=== PATIENT | female | born 1980 | race Hispanic/Latino ===

== ENCOUNTER 2017-11-30 13:23 | Inpatient (IN) | payer SELFPAY ==
[~2017-11-30] VITALS: Ht 167.6 cm; Wt 90.3 kg
[2017-11-30 14:08] LABS: PREGNANCY TEST, URINE NEGATIVE (NEGATIVE)
[2017-11-30 14:17] LABS: BILIRUBIN,URINE NEGATIVE (NEGATIVE); CLARITY,URINE SL CLOUDY (CLEAR); COLOR,URINE YELLOW (YELLOW); KETONES,URINE NEGATIVE (NEGATIVE); LEUKOCYTE ESTERASE ,URINE NEGATIVE (NEGATIVE); NITRITE,URINE NEGATIVE (NEGATIVE); PROTEIN,URINE DIPSTICK 1+ (NEGATIVE); URINE UROBILINOGEN 0.2 mg/dL (0.2 - 1)
[2017-11-30 14:37] LABS: EPITHELIAL CELLS,URINE MODERATE /LPF; MUCUS,URINE FEW (RARE); RBC,URINE 0-5 /HPF (0-5); WBC,URINE (MAN) 0-5 /HPF (0-5)
[2017-11-30 15:00] LABS: BASOPHILS % 0.2 % (0.0-1.0); HEMATOCRIT 31.2 % (34.2-44.1); HEMOGLOBIN 9.1 g/dL (12.0-16.0); LYMPHOCYTES # (AUTO) 0.8 (1.0-3.2); LYMPHOCYTES % 6.6 % (18.0-39.1); MEAN CORPUSCULAR HEMOGLOBIN 19.1 pg (28-32); MEAN CORPUSCULAR HGB CONC 29.2 g/dL (31-35); MEAN CORPUSCULAR VOLUME 65.5 fL (81-99); MONOCYTES # (AUTO) 0.4 (0.2-0.8); MONOCYTES % 3.4 % (4.4-11.3); NEUTROPHILS # (AUTO) 10.2 (2.1-6.9); NEUTROPHILS % 89.5 % (38.7-80.0); PLATELET COUNT 377 x10e3/uL (140-360); RED BLOOD COUNT 4.76 x10e6/uL (3.6-5.1); RED CELL DISTRIBUTION WIDTH 17.9 % (11.7-14.4)
[2017-11-30 15:20] LABS: ALANINE AMINOTRANSFERASE 9 IU/L (0-55); ALBUMIN 3.9 g/dL (3.5-5.0); ALKALINE PHOSPHATASE 68 IU/L (40-150); ANION GAP 10.6 mmol/L (8-16); BLOOD UREA NITROGEN 11 mg/dL (7-26); BUN/CREATININE RATIO 13 (6-25); CALCIUM 8.9 mg/dL (8.4-10.2); CARBON DIOXIDE 24 mmol/L (22-29); CHLORIDE 105 mmol/L (98-107); CREATININE, SERUM 0.86 mg/dL (0.57-1.11); EST GLOMERULAR FILTRATION RATE > 60 ML/MIN (60-); GLUCOSE 127 mg/dL (74-118); POTASSIUM 3.6 mmol/L (3.5-5.1); SODIUM 136 mmol/L (136-145)
[2017-11-30] MEDS ORDERED: ONDANSETRON HCL INJ 2 MG/ML VIAL IV STA (16:12)
[2017-11-30] MEDS ORDERED: SODIUM CHLORIDE 0.9% 1000ML 1,000 ML IV STA (16:12)
[2017-11-30] MEDS ORDERED: PANTOPRAZOLE 40 MG 10ML VIAL IV STA (16:12)
[2017-11-30] MEDS ORDERED: MORPHINE SULFATE 2 MG/ML SYR IV ONE (16:15)
[2017-11-30 16:28] LABS: INR 1.2; PROTHROMBIN TIME 14.3 seconds (11.9-14.5)
[2017-11-30 16:29] LABS: PARTIAL THROMBOPLASTIN TIME 28.6 seconds (23.8-35.5)
[2017-11-30 16:35] LABS: CHOL/HDL RATIO 3.6 (3.0-3.6)
--- NOTE | 2017-11-30 19:20 | Diagnostic Imaging Report ---
EXAM: CT Abdomen and Pelvis WITH contrast INDICATION: Pain COMPARISON: None. TECHNIQUE: Abdomen and Pelvis was scanned utilizing a multidetector helical scanner after administration of IV contrast. Coronal and sagittal reformations were obtained. IV CONTRAST: 100 mL Isovue-370 COMPLICATIONS: None RADIATION DOSE: Total DLP:542 mGy*cm Estimated effective dose: (DLP x 0.015 x size factor) mSv CTDIvol has been reviewed. It is below the limits set by the Radiation Protocol Committee (RPC). FINDINGS: Abdomen: Lung Bases: Groundglass opacities in the lung bases statistically represent atelectasis. Solid Organs: Several hypodensities in the liver including 46 mm image 17, 17 mm image 17, 14 mm image 23, and 16 mm image 29. Adrenals, kidneys, spleen, and pancreas unremarkable. Upper GI Tract: Decompressed stomach limits evaluation. No small bowel obstructive changes. Vascularity: No aortic aneurysm. Lymph Nodes: No suspicious adenopathy. Other: Small amount of free fluid about the liver. Mesenteric inflammatory changes. Pelvis: Bladder: Unremarkable. Other: Uterus grossly unremarkable. There is a 97 x 70 x 102 mm lesion posterior to the uterus on the left with indeterminate Hounsfield units of 43. 49 x 36 mm cystic lesion posterior right pelvis present with more simple fluid Hounsfield units of 17. Colon: Distal colonic decompression limits evaluation. Moderate inflammatory changes are present in the right lower quadrant. There is hyperemia of the wall of the appendix with maximal appendiceal diameter 14 mm. Bone: No acute findings. IMPRESSION: 1. Moderate inflammatory changes in the right lower quadrant with dilated appendix with hyperemic wall consistent with moderate appendicitis. 2. Large 97 x 70 x 102 mm lesion posterior to the uterus on the left with indeterminate Hounsfield units. Findings are nonspecific. Exophytic fibroid, hematoma, large complex/hemorrhagic cyst, cystic ovarian malignancy, or complex duplication cyst could have this appearance. While lesion does not distinctly have the appearance of an abscess, this is not excluded. Adnexal lesion on the right presumably ovarian/physiologic. Pelvic ultrasound could be obtained for further evaluation. 3. Several hepatic lesions incompletely evaluated. Largest lesion may have peripheral nodular enhancement suggesting hemangioma. Nonemergent outpatient liver mass MRI recommended. Signed by: Dr. Willian Norris MD on 11/30/2017 7:16 PM
[2017-11-30] MEDS ORDERED: PIPER-TAZ 3.375 GM 50 ML IV STA (20:56)
--- OUTSIDE RECORDS SUMMARY | 2017-11-30 21:42 | XMS REPORT ---
Author Author [facility] Address Unknown Phone Unavailable Care Team Providers Care Palliative Care Physician Name Role Phone GUME BAR Unavailable Unavailable Problems This patient has no known problems. Allergies, Adverse Reactions, Alerts This patient has no known allergies or adverse reactions. Medications This patient has no known medications. Results Test Description Test Time Test Comments Text Results Atomic Results Result Comments CT ABDOMEN/PELVIS W 2017-11-30 19:02:00 [place] [address] Patient Name: CATRACHITO MCDERMOTT MR #: [id number] : 1980 Age/Sex: 37/F Req #: [id number] [facility] Physician: Ordered by: GUME BAR MD Report #: [id number] Location: ER Room/Bed: Procedure: [id number] CT/CT ABDOMEN/PELVIS W Exam Date: 11/30/17 Exam Time: 1850 REPORT STATUS: Signed EXAM: CT Abdomen and Pelvis WITH contrast INDICATION: Pain COMPARISON: None. TECHNIQUE: Abdomen and Pelvis was scanned utilizing a multidetector helical scanner after administration of IV contrast. Coronal and sagittal reformations were obtained. IV CONTRAST: 100 mL Isovue-370 COMPLICATIONS: None RADIATION DOSE: Total DLP:542 mGy*cm Estimated effective dose: (DLP x 0.015 x size factor) mSv CTDIvol has been reviewed. It is below the limits set by the Radiation Protocol Committee (RPC). FINDINGS: Abdomen: Lung Bases: Groundglass opacities in the lung bases statistically represent atelectasis. Solid Organs: Several hypodensities in the liver including 46 mm image 17, 17 mm image 17, 14 mm image 23, and 16 mm image 29. Adrenals, kidneys, spleen, and pancreas unremarkable. Upper GI Tract: Decompressed stomach limits evaluation. No small bowel obstructive changes. Vascularity: No aortic aneurysm. Lymph Nodes: No suspicious adenopathy. Other: Small amount of free fluid about the liver. Mesenteric inflammatory changes. Pelvis : Bladder: Unremarkable. Other: Uterus grossly unremarkable. There is a 97 x 70 x 102 mm lesion posterior to the uterus on the left with indeterminate Hounsfield units of 43. 49 x 36 mm cystic lesion posterior right pelvis present with more simple fluid Hounsfield units of 17. Colon : Distal colonic decompression limits evaluation. Moderate inflammatory changes are present in the right lower quadrant. There is hyperemia of the wall of the appendix with maximal appendiceal diameter 14 mm. Bone: No acute findings. IMPRESSION: 1. Moderate inflammatory changes in the right lower quadrant with dilated appendix with hyperemic wall consistent with moderate appendicitis. 2. Large 97 x 70 x 102 mm lesion posterior to the uterus on the left with indeterminate Hounsfield units. Findings are nonspecific. Exophytic fibroid, hematoma, large complex/hemorrhagic cyst, cystic ovarian malignancy, or complex duplication cyst could have this appearance. While lesion does not distinctly have the appearance of an abscess , this is not excluded. Adnexal lesion on the right presumably ovarian/ physiologic. Pelvic ultrasound could be obtained for further evaluation. 3. Several hepatic lesions incompletely evaluated. Largest lesion may have peripheral nodular enhancement suggesting hemangioma. Nonemergent outpatient liver mass MRI recommended. Signed by: Dr. Willian Nicole MD on 11/30/2017 7: 16 PM Dictated By: WILLIAN NICOLE MD 15 Transcribed By: LEILANI on 11/30/171915 COPY TO: GUME BAR MD
[2017-11-30] MEDS ORDERED: PIPER-TAZ 3.375 GM / NS 50ML IV SCH (22:00)
[2017-11-30] MEDS ORDERED: PIPER-TAZ 3.375 GM 50 ML IV SCH (22:00)
[2017-11-30] MEDS ORDERED: SODIUM CHLORIDE 0.9% 50ML 50 ML ONE (22:16)
[2017-11-30] MEDS ORDERED: IOPAMIDOL 370 MG/ML 200 ML INFUS..BTL INJ ONE (22:16)
[2017-11-30 23:00] VITALS: BP 121/55
[2017-11-30 23:07] VITALS: BP 121/55
[2017-11-30] MEDS: ONDANSETRON HCL INJ 2 MG/ML VIAL IV PRN ×2 (23:07→23:11)
[2017-11-30] MEDS: SODIUM CHLORIDE 0.9% 1000ML 1,000 ML IV SCH (23:10)
[2017-11-30] MEDS: MORPHINE SULFATE 2 MG/ML SYR IV PRN (23:11)
[2017-11-30] MEDS: ACETAMINOPHEN 1000 MG/100 ML IV PRN (23:30)
[2017-12-01] VITALS (11 sets, daily range): BP systolic 109–124; BP diastolic 53–59
[2017-12-01] MEDS: MORPHINE SULFATE 2 MG/ML SYR IV PRN ×2 (03:55→10:20)
[2017-12-01] MEDS: ONDANSETRON HCL INJ 2 MG/ML VIAL IV PRN ×3 (03:55→10:20)
[2017-12-01] MEDS: ACETAMINOPHEN 1000 MG/100 ML IV PRN ×2 (05:54→12:09)
[2017-12-01] MEDS: PIPER-TAZ 3.375 GM 50 ML IV SCH ×3 (06:16→21:19)
[2017-12-01] MEDS: SODIUM CHLORIDE 0.9% 1000ML 1,000 ML IV SCH ×2 (06:16→17:30)
[2017-12-01 07:24] LABS: BASOPHILS % 0.2 % (0.0-1.0); HEMATOCRIT 25.4 % (34.2-44.1); LYMPHOCYTES # (AUTO) 0.8 (1.0-3.2); LYMPHOCYTES % 7.2 % (18.0-39.1); MEAN CORPUSCULAR HEMOGLOBIN 19.3 pg (28-32); MEAN CORPUSCULAR HGB CONC 29.9 g/dL (31-35); MEAN CORPUSCULAR VOLUME 64.6 fL (81-99); MONOCYTES # (AUTO) 0.5 (0.2-0.8); MONOCYTES % 4.6 % (4.4-11.3); NEUTROPHILS # (AUTO) 9.1 (2.1-6.9); NEUTROPHILS % 87.7 % (38.7-80.0); PLATELET COUNT 280 x10e3/uL (140-360); RED BLOOD COUNT 3.93 x10e6/uL (3.6-5.1); RED CELL DISTRIBUTION WIDTH 18.1 % (11.7-14.4)
[2017-12-01 07:45] LABS: ALANINE AMINOTRANSFERASE 7 IU/L (0-55); ALBUMIN 2.9 g/dL (3.5-5.0); ALBUMIN/GLOBULIN RATIO 0.9 (0.8-2.0); ALKALINE PHOSPHATASE 51 IU/L (40-150); ANION GAP 6.4 mmol/L (8-16); BLOOD UREA NITROGEN 13 mg/dL (7-26); BUN/CREATININE RATIO 17 (6-25); CARBON DIOXIDE 22 mmol/L (22-29); CHLORIDE 109 mmol/L (98-107); CREATININE, SERUM 0.76 mg/dL (0.57-1.11); EST GLOMERULAR FILTRATION RATE > 60 ML/MIN (60-); GLUCOSE 113 mg/dL (74-118); POTASSIUM 3.4 mmol/L (3.5-5.1); SODIUM 134 mmol/L (136-145)
[2017-12-01 08:02] LABS: ANISOCYTOSIS SLIGHT; BAND NEUTROPHILS % (MANUAL) 2 %; HYPOCHROMASIA SLIGHT; LYMPHOCYTES % (MANUAL) 11 % (19-48); MICROCYTOSIS SLIGHT; MONOCYTES % (MANUAL) 7 % (3.4-9.0); NEUTROPHILS % (MANUAL) 80 % (40-74); PLATELET ESTIMATE ADEQUATE; PLATELET MORPHOLOGY COMMENT NORMAL; RBC MORPHOLOGY COMMENT NORMAL
[2017-12-01 08:24] LABS: HEMOGLOBIN 7.6 g/dL (12.0-16.0)
[2017-12-01] MEDS ORDERED: SODIUM CHLORIDE 0.9% 250ML 250 ML IV ONE (08:45)
[2017-12-01] MEDS ORDERED: BUPIVACAINE 0.25%/EPI 30ML SDV INJ ONE (13:48)
[2017-12-01] MEDS ORDERED: NEOSTIGMINE 5 MG/5ML SYR ONE (14:34)
[2017-12-01] MEDS ORDERED: DEXAMETHASONE SOD PHOS INJ 4 MG/ML VIAL ONE (14:34)
[2017-12-01] MEDS ORDERED: SEVOFLURANE INHAL SOLN 250 ML PEN BTL ONE (14:34)
[2017-12-01] MEDS ORDERED: ROCURONIUM BROMIDE 10 MG/ML 5ML VIAL ONE (14:34)
[2017-12-01] MEDS ORDERED: LIDOCAINE HCL 2% LOCAL INJ 5 ML SDV VIAL INJ ONE (14:34)
[2017-12-01] MEDS ORDERED: ONDANSETRON HCL INJ 2 MG/ML VIAL ONE (14:34)
[2017-12-01] MEDS ORDERED: PROPOFOL IV EMULSION 10 MG/ML 20 ML VIAL ONE (14:34)
[2017-12-01] MEDS ORDERED: GLYCOPYRROLATE INJ 1MG/ 5 ML SYR ONE (14:34)
[2017-12-01] MEDS ORDERED: FENTANYL CITRATE/PF 100MCG/2 ML INJ ONE ×2 (14:47→15:36)
[2017-12-01] MEDS ORDERED: MIDAZOLAM HCL 2 MG/2 ML VIAL ONE (14:47)
--- NOTE | 2017-12-01 16:33 | Operative Report ---
DATE OF PROCEDURE: December 01, 2017 PREOPERATIVE DIAGNOSIS: Acute appendicitis. POSTOPERATIVE DIAGNOSES 1. Acute appendicitis with peritonitis. 2. Multiple abscesses, intra-abdominally. 3. Right ovarian cyst. 4. Endometriosis. 5. Left ovarian mass. OPERATIONS PERFORMED 1. Laparoscopic cholecystectomy with drainage of multiple intra-abdominal abscesses. 2. Peritoneal lavage. ANESTHESIA: General. COMPLICATIONS: None. ESTIMATED BLOOD LOSS: Minimal. DESCRIPTION OF PROCEDURE: With the patient lying in bed in the supine position under good general endotracheal anesthesia, the abdomen was prepped with Betadine solution and draped in the usual manner. A Veress needle was introduced into the umbilicus and a pneumoperitoneum was established without any difficulty. A 12-mm trocar was placed into the umbilicus, and a 10 mm video laparoscope was placed into the intra-abdominal cavity under direct vision. A 5-mm trocar was placed in the suprapubic region, and another one in the left lower quadrant, and another one in the right upper quadrant. Video laparoscopy at this point revealed some free purulent fluid in the abdominal cavity, particularly in the pelvis. All of this was aspirated. The right colon was stuck to the anterior abdominal wall, which when mobilized revealed an acutely inflamed partially retrocecal appendix with multiple abscesses all the way up and down the right gutter and the right subphrenic space, and the right subhepatic space. All of these loculations were then broken down and aspirated. At this point, we visualized the pelvis on the right side. There was some signs of endometriosis. There was what appeared to be a physiologic cyst in the right ovary. The uterus was totally plastered to the sigmoid colon on the left side. There was an obviously palpable mass in the area, but we could not be visualized as it was totally stuck to the sigmoid colon. We decided to leave that alone. The patient had already been told preoperatively that she had this mass, that this would have to be evaluated by her produce field merchandiser postoperatively at a later date when all of the infection from the appendicitis had subsided. At this point, we went ahead then mobilized the right colon from the retroperitoneum. The base of the appendix could then be visualized. The appendix was then dissected and divided with an application of the MARCIA endoscopic stapler. The mesentery of the appendix was then divided with 2 applications of the Endo-MARCIA vascular stapler. The appendix was placed in a pouch and removed through the umbilicus without any difficulty. After this was done, the abdomen was then copiously irrigated with many liters of saline solution. All of the loculations were broken down. All of the purulent material was aspirated throughout the abdominal cavity. Once the effluent was coming back perfectly clear in all directions, and all of the fluid had been aspirated, the pneumoperitoneum was then evacuated and all the trocars were removed under direct vision. The midline fascia at the umbilicus was closed a [id number] of 0 Vicryl. All layers were infiltrated on the way out with solution of 0.25% Marcaine. Subcutaneous tissue was approximated with 3-0 Vicryl and the skin was closed with clips. Dressings were applied. The sponge, lap and needle count was correct. The patient tolerated the procedure well and returned to the recovery room in stable condition. Job#: [id number]
[2017-12-01] MEDS: METRONIDAZOLE 500MG/NS 100ML 100 ML IV SCH ×2 (17:30→23:35)
[2017-12-02] VITALS (7 sets, daily range): BP systolic 120–154; BP diastolic 58–69
[2017-12-02] MEDS: SODIUM CHLORIDE 0.9% 1000ML 1,000 ML IV SCH ×3 (00:10→10:59)
[2017-12-02] MEDS: ACETAMINOPHEN 325 MG SUPP PR PRN ×5 (00:30→21:14)
[2017-12-02] MEDS: HYDROMORPHONE 1MG/1ML INJ IV PRN ×4 (03:37→18:39)
[2017-12-02] MEDS: METRONIDAZOLE 500MG/NS 100ML 100 ML IV SCH ×3 (05:54→17:36)
[2017-12-02] MEDS: PIPER-TAZ 3.375 GM 50 ML IV SCH ×3 (05:54→21:45)
[2017-12-02 08:37] LABS: BASOPHILS % 0.1 % (0.0-1.0); HEMATOCRIT 23.5 % (34.2-44.1); LYMPHOCYTES # (AUTO) 0.7 (1.0-3.2); LYMPHOCYTES % 5.6 % (18.0-39.1); MEAN CORPUSCULAR HEMOGLOBIN 19.4 pg (28-32); MEAN CORPUSCULAR HGB CONC 29.4 g/dL (31-35); MONOCYTES # (AUTO) 0.6 (0.2-0.8); MONOCYTES % 4.3 % (4.4-11.3); NEUTROPHILS # (AUTO) 11.4 (2.1-6.9); NEUTROPHILS % 89.4 % (38.7-80.0); PLATELET COUNT 288 x10e3/uL (140-360); RED BLOOD COUNT 3.56 x10e6/uL (3.6-5.1); RED CELL DISTRIBUTION WIDTH 18.1 % (11.7-14.4)
[2017-12-02 08:48] LABS: HEMOGLOBIN 6.9 g/dL (12.0-16.0)
[2017-12-02 09:02] LABS: ANION GAP 10.8 mmol/L (8-16); BLOOD UREA NITROGEN 12 mg/dL (7-26); BUN/CREATININE RATIO 18 (6-25); CARBON DIOXIDE 20 mmol/L (22-29); CHLORIDE 114 mmol/L (98-107); CREATININE, SERUM 0.67 mg/dL (0.57-1.11); EST GLOMERULAR FILTRATION RATE > 60 ML/MIN (60-); GLUCOSE 105 mg/dL (74-118); POTASSIUM 3.8 mmol/L (3.5-5.1); SODIUM 141 mmol/L (136-145)
[2017-12-02] MEDS ORDERED: SODIUM CHLORIDE 0.9% 250ML 250 ML ONE ×2 (18:29→22:31)
[2017-12-03] VITALS (8 sets, daily range): BP systolic 121–145; BP diastolic 64–77
[2017-12-03] MEDS: HYDROCODONE/APAP 7.5MG-325MG 1 EA TAB PO PRN ×5 (00:10→20:21)
[2017-12-03] MEDS: SODIUM CHLORIDE 0.9% 1000ML 1,000 ML IV SCH ×2 (04:29→06:05)
[2017-12-03] MEDS: PIPER-TAZ 3.375 GM 50 ML IV SCH ×3 (06:05→22:00)
[2017-12-03] MEDS: METRONIDAZOLE 500MG/NS 100ML 100 ML IV SCH ×5 (06:05→23:30)
[2017-12-03 06:59] LABS: BASOPHILS # (AUTO) 0.1 (0.0-0.1); BASOPHILS % 0.4 % (0.0-1.0); EOSINOPHILS % 0.2 % (0.0-6.0); HEMATOCRIT 30.5 % (34.2-44.1); HEMOGLOBIN 9.2 g/dL (12.0-16.0); LYMPHOCYTES # (AUTO) 1.5 (1.0-3.2); LYMPHOCYTES % 11.2 % (18.0-39.1); MEAN CORPUSCULAR HEMOGLOBIN 20.8 pg (28-32); MEAN CORPUSCULAR HGB CONC 30.2 g/dL (31-35); MEAN CORPUSCULAR VOLUME 68.8 fL (81-99); MONOCYTES # (AUTO) 0.6 (0.2-0.8); MONOCYTES % 4.7 % (4.4-11.3); NEUTROPHILS # (AUTO) 11.3 (2.1-6.9); PLATELET COUNT 273 x10e3/uL (140-360); RED BLOOD COUNT 4.43 x10e6/uL (3.6-5.1); RED CELL DISTRIBUTION WIDTH 20.7 % (11.7-14.4)
[2017-12-03 07:06] LABS: ANION GAP 12.1 mmol/L (8-16); BLOOD UREA NITROGEN 9 mg/dL (7-26); BUN/CREATININE RATIO 14 (6-25); CALCIUM 8.4 mg/dL (8.4-10.2); CARBON DIOXIDE 18 mmol/L (22-29); CHLORIDE 112 mmol/L (98-107); CREATININE, SERUM 0.64 mg/dL (0.57-1.11); EST GLOMERULAR FILTRATION RATE > 60 ML/MIN (60-); GLUCOSE 115 mg/dL (74-118); POTASSIUM 4.1 mmol/L (3.5-5.1); SODIUM 138 mmol/L (136-145)
[2017-12-03] MEDS ORDERED: SODIUM CHLORIDE 0.9% 50ML 50 ML ONE (17:09)
[2017-12-03] MEDS: PROMETHAZINE HCL (IM) 25 MG/ML VIAL IV PRN (17:15)
[2017-12-03] MEDS ORDERED: ACETAMINOPHEN 325 MG TAB PO PRN (19:15)
[2017-12-04] VITALS (7 sets, daily range): BP systolic 135–159; BP diastolic 65–73
[2017-12-04] MEDS: SODIUM CHLORIDE 0.9% 1000ML 1,000 ML IV SCH ×2 (05:00→19:18)
[2017-12-04] MEDS: PIPER-TAZ 3.375 GM 50 ML IV SCH ×3 (05:10→21:52)
[2017-12-04] MEDS: METRONIDAZOLE 500MG/NS 100ML 100 ML IV SCH ×4 (05:50→23:48)
[2017-12-04 06:49] LABS: BASOPHILS % 0.4 % (0.0-1.0); EOSINOPHILS # (AUTO) 0.1 (0.0-0.4); HEMATOCRIT 27.7 % (34.2-44.1); HEMOGLOBIN 8.6 g/dL (12.0-16.0); LYMPHOCYTES # (AUTO) 1.3 (1.0-3.2); LYMPHOCYTES % 16.4 % (18.0-39.1); MEAN CORPUSCULAR HEMOGLOBIN 20.4 pg (28-32); MEAN CORPUSCULAR VOLUME 65.6 fL (81-99); MONOCYTES # (AUTO) 0.6 (0.2-0.8); MONOCYTES % 7.1 % (4.4-11.3); NEUTROPHILS % 74.4 % (38.7-80.0); PLATELET COUNT 307 x10e3/uL (140-360); RED BLOOD COUNT 4.22 x10e6/uL (3.6-5.1); RED CELL DISTRIBUTION WIDTH 20.8 % (11.7-14.4)
[2017-12-04 07:02] LABS: ANION GAP 11.2 mmol/L (8-16); BLOOD UREA NITROGEN 8 mg/dL (7-26); BUN/CREATININE RATIO 13 (6-25); CALCIUM 8.1 mg/dL (8.4-10.2); CARBON DIOXIDE 20 mmol/L (22-29); CHLORIDE 109 mmol/L (98-107); CREATININE, SERUM 0.64 mg/dL (0.57-1.11); EST GLOMERULAR FILTRATION RATE > 60 ML/MIN (60-); GLUCOSE 103 mg/dL (74-118); POTASSIUM 3.2 mmol/L (3.5-5.1); SODIUM 137 mmol/L (136-145)
[2017-12-04] MEDS: HYDROCODONE/APAP 7.5MG-325MG 1 EA TAB PO PRN (07:56)
[2017-12-04] MEDS ORDERED: POTASSIUM CHLORIDE 20 MEQ TAB CR PO STA (12:55)
[2017-12-04] MEDS ORDERED: POTASSIUM CHLORIDE 20 MEQ TAB CR PO ONE (15:00)
[2017-12-04] MEDS ORDERED: SODIUM CHLORIDE 0.9% 50ML 50 ML ONE (19:54)
[2017-12-04] MEDS: PROMETHAZINE HCL (IM) 25 MG/ML VIAL IV PRN (20:00)
[2017-12-05] VITALS: BP 144/65
[2017-12-05 04:00] VITALS: BP 138/63
[2017-12-05] MEDS: SODIUM CHLORIDE 0.9% 1000ML 1,000 ML IV SCH (05:10)
[2017-12-05] MEDS: PIPER-TAZ 3.375 GM 50 ML IV SCH ×2 (05:10→14:00)
[2017-12-05] MEDS: METRONIDAZOLE 500MG/NS 100ML 100 ML IV SCH ×2 (05:49→11:42)
[2017-12-05 06:26] LABS: BASOPHILS # (AUTO) 0.1 (0.0-0.1); BASOPHILS % 0.7 % (0.0-1.0); EOSINOPHILS # (AUTO) 0.1 (0.0-0.4); EOSINOPHILS % 1.9 % (0.0-6.0); HEMATOCRIT 30.1 % (34.2-44.1); HEMOGLOBIN 9.4 g/dL (12.0-16.0); LYMPHOCYTES # (AUTO) 1.6 (1.0-3.2); LYMPHOCYTES % 23.1 % (18.0-39.1); MEAN CORPUSCULAR HEMOGLOBIN 20.3 pg (28-32); MEAN CORPUSCULAR HGB CONC 31.2 g/dL (31-35); MONOCYTES # (AUTO) 0.6 (0.2-0.8); MONOCYTES % 8.8 % (4.4-11.3); NEUTROPHILS # (AUTO) 4.5 (2.1-6.9); NEUTROPHILS % 64.8 % (38.7-80.0); PLATELET COUNT 341 x10e3/uL (140-360); RED BLOOD COUNT 4.63 x10e6/uL (3.6-5.1); RED CELL DISTRIBUTION WIDTH 21.8 % (11.7-14.4)
[2017-12-05 06:55] LABS: ALANINE AMINOTRANSFERASE 15 IU/L (0-55); ALBUMIN 2.7 g/dL (3.5-5.0); ALBUMIN/GLOBULIN RATIO 0.7 (0.8-2.0); ALKALINE PHOSPHATASE 61 IU/L (40-150); ANION GAP 12.8 mmol/L (8-16); BLOOD UREA NITROGEN 8 mg/dL (7-26); BUN/CREATININE RATIO 12 (6-25); CALCIUM 8.8 mg/dL (8.4-10.2); CARBON DIOXIDE 21 mmol/L (22-29); CHLORIDE 109 mmol/L (98-107); CREATININE, SERUM 0.66 mg/dL (0.57-1.11); EST GLOMERULAR FILTRATION RATE > 60 ML/MIN (60-); GLUCOSE 102 mg/dL (74-118); POTASSIUM 3.8 mmol/L (3.5-5.1); SODIUM 139 mmol/L (136-145)
[2017-12-05 08:56] VITALS: BP 144/68
[2017-12-05 09:10] LABS: EOSINOPHILS % (MANUAL) 3 % (0-7); LYMPHOCYTES % (MANUAL) 16 % (19-48); METAMYELOCYTES % (MANUAL) 1 % (0-0); MONOCYTES % (MANUAL) 9 % (3.4-9.0); NEUTROPHILS % (MANUAL) 71 % (40-74)
[2017-12-05 09:12] LABS: ANISOCYTOSIS MODERATE; ELLIPTOCYTE, RBC SLIGHT; HYPOCHROMASIA SLIGHT; PLATELET ESTIMATE ADEQUATE; PLATELET MORPHOLOGY COMMENT FEW LARGE; RBC MORPHOLOGY COMMENT NORMAL
[2017-12-05 12:12] VITALS: BP 138/65
== END 2017-12-05 14:30 | disposition home or self-care (01) | DRG 338 ==
LOC: ER 13:23 → MED/SURG 21:39 → ACU 12-03 11:43 → MED/SURG 12-03 11:43
PROVIDERS: ADMIT Surgery; ATTEND Surgery
PROC: 0DTJ4ZZ Resection of Appendix, Percutaneous Endoscopic Approach (ICD-10-PCS; principal; 2017-11-30)
PROC: 3E1M38X Irrigation of Peritoneal Cavity using Irrigating Substance, Percutaneous Approach, Diagnostic (ICD-10-PCS; 2017-11-30)
DX: K35.2 Acute appendicitis with generalized peritonitis (principal); K65.1 Peritoneal abscess; N83.201 Unspecified ovarian cyst, right side; N80.9 Endometriosis, unspecified; N83.9 Noninflammatory disorder of ovary, fallopian tube and broad ligament, unspecified
CPT/HCPCS: 36415; 74177; 76705; 80048; 80053; 80061; 81001; 81025; 82150; 83690; 85025; 85610; 85730; 86850; 86900; 86920; 88304; 93005; 99284; C1766; J1100; J1170; J2001; J2250; J2270; J2405; J2543; J2550; J7030; J7050; P9016; Q9967